=== PATIENT | male | born 1960 | race Caucasian/White ===

== ENCOUNTER 2017-01-30 12:39 | Emergency (ER) | payer BC, OTHER ==
[2017-01-30 12:46] VITALS: BP 125/85; PULSE 62; TEMP 97.6; BMI 25.0
[2017-01-30] MEDS ORDERED: IBUPROFEN 600 MG TABLET (FP) PO ONE (12:49)
--- NOTE | 2017-01-30 13:03 | PDOC ---
History of Present Illness - General Chief Complaint: Injury Stated Complaint: LEFT 1ST FINGER INJURY Time Seen by Provider: 01/30/17 12:48 - History of Present Illness Initial Comments: 01/30/17 13:03 Chief complaint: Injury left thumb History of present illness: Patient states that he was playing basketball around 11:00 this morning, the basketball struck the tip of his thumb, causing hyperextension, and he sustained a laceration to the flexor surface. He denies distal numbness tingling or pain in the fingertip. He denies inability to move the finger or flexion deficit Review of systems: As noted above, no distal numbness tingling or pain in the fingertip. No limited motion and bending. No other injuries and no fall Past medical history: Seizure disorder on Keppra, no recent seizures Family/social history reviewed and noncontributory Physical exam: Alert oriented 3 well-developed well-nourished no acute distress cheerful and cooperative Afebrile, vital signs normal Right thumb: 2 cm laceration volar aspect of the thumb along the crease of the IP joint. Fingertip sensation is intact on both medial and lateral aspect of the thumb. Capillary refill is intact. Flexion of the joint is full against resistance. Impression: Finger laceration, rule out fracture, rule out partial tendon injury Plan: X-ray, visual inspection after anesthesia, and repair of laceration. 01/30/17 14:15 Past History - Past Medical History Allergies/Adverse Reactions: Allergies Allergy/AdvReac Type Severity Reaction Status Date / Time Penicillins Allergy Rash Verified 01/30/17 12:40 Home Medications: Ambulatory Orders NK [No Known Home Medication] 01/30/17 Seizures: Yes (PT HAS QUESTIONABLE SEIZURE) - Psycho/Social/Smoking Cessation Hx Anxiety: No Suicidal Ideation: No Smoking Status: No Smoking History: Never smoked Number of Cigarettes Smoked Daily: 0 Hx Alcohol Use: No Drug/Substance Use Hx: No Substance Use Type: Alcohol *Physical Exam - Vital Signs Last Vital Signs Temp Pulse Resp BP Pulse Ox 97.6 F 62 16 125/85 100 01/30/17 12:40 01/30/17 12:40 01/30/17 12:40 01/30/17 12:40 01/30/17 12:40 Medical Decision Making - Medical Decision Making X-ray reviewed: Negative 01/30/17 14:14 Note: Repair of laceration Betadine prep. Digital block 1% lidocaine plain with good anesthesia Well scrubbed and copiously irrigated with normal saline. Explored. Superficial. No deep punctures or deep structures exposed. Wound closed with 4-0 nylon interrupted skin sutures. Bacitracin. Gauze. Rest and elevation. Wound care discussed. Follow-up with sign of infection, otherwise sutures out in 7 days Patient fully ambulatory and in no pain or other distress upon discharge to follow-up as directed. 01/30/17 14:16 *DC/Admit/Observation/Transfer Diagnosis at time of Disposition: Finger laceration Qualifiers: Encounter type: initial encounter Qualified Code(s): S61.219A - Laceration without foreign body of unspecified finger without damage to nail, initial encounter - Discharge Dispostion Disposition: HOME Condition at time of disposition: Improved Admit: No - Referrals Referrals: Zenia Wiseman MD [Primary Care Provider] - Emmanuel Valencia MD [Staff Physician] - - Patient Instructions Printed Discharge Instructions: DI for Laceration Repair Additional Instructions: Keep clean and dry. Elevate and rest for 24 hours. Recheck immediately if sign of infection. Otherwise suture removal in 7 days. - Post Discharge Activity Work/School Note: Back to Work
[2017-01-30] MEDS ORDERED: IBUPROFEN 400 MG TABLET (FP) PO ONE (13:05)
== END 2017-01-30 14:20 | disposition home or self-care (01) ==
LOC: FER 12:39
PROC: 0HQFXZZ Repair Right Hand Skin, External Approach (ICD-10-PCS; principal; 2017-01-30)
DX: S61.011A Laceration without foreign body of right thumb without damage to nail, initial encounter (principal); W21.05XA Struck by basketball, initial encounter; Y93.67 Activity, basketball; Y92.310 Basketball court as the place of occurrence of the external cause; G40.909 Epilepsy, unspecified, not intractable, without status epilepticus
CPT/HCPCS: 73140-TC-LT; 99282-25

== ENCOUNTER 2017-02-06 12:14 | Emergency (ER) | payer BC, OTHER ==
--- NOTE | 2017-02-06 12:21 | PDOC ---
Suture Removal/Wound Check HPI - History of Present Illness Chief Complaint: Suture/Staple Removal(Here) Stated Complaint: SUTURE REMOVAL FROM LEFT THUMB Time Seen by Provider: 02/06/17 12:20 History Source: Yes: Patient Exam Limitations: Yes: No Limitations Treated at: [facility] ED Date of Last ED visit: 01/30/17 - Previous ED Treatment Type of procedure performed on last visit: Yes: Laceration Repair Tetanus Immunization: Yes: Up to Date Antibiotics Prescribed: No - Onset of Previous Treatment Date of Occurence: 01/30/17 Comment:: 56 yo M presents for wound check. He c/o swelling to the thumb, but it is improving over time. No fever, chills, drainage of pus. Past History - Past Medical History Allergies/Adverse Reactions: Allergies Penicillins Allergy (Verified 02/06/17 12:17) Rash Home Medications: Ambulatory Orders NK [No Known Home Medication] 01/30/17 - Social History Smoking History: No Smoking Status: Never smoked Number of Ciarettes Per Day: 0 Suture Removal/Wound Check PE - Physical Exam Laceration/Wound Check Symptoms: reports: Improved Comments: GENERAL: Awake, alert, and fully oriented, in no acute distress HEAD: No signs of trauma EXTREMITIES: L thumb with swelling, no erythema, no drainage. NEUROLOGICAL: Distal N/V intact. SKIN: Warm, Dry, normal turgor, no rashes. +Healing laceration to the L thumb, but not completely dry/healed. *Review of Systems - Review of Systems Able to Perform ROS?: Yes Comments:: GENERAL/CONSTITUTIONAL: No fever or chills. No weakness. MUSCULOSKELETAL: No joint or muscle swelling or pain. No neck or back pain. SKIN: No rash. Healing laceration. NEUROLOGIC: No headache, vertigo, loss of consciousness, or change in strength/ sensation. Medical Decision Making - Medical Decision Making 02/06/17 12:31 Wound examined- appears slightly too early to remove sutures- the wound is not completely dried and scabbed over, and the center portion opens a bit. Will defer removing sutures for 4 more days. Counseled patient to try to leave the wound uncovered when at home, when able, to allow it to remain dry. *DC/Admit/Observation/Transfer Diagnosis at time of Disposition: Encounter for wound re-check - Discharge Dispostion Disposition: HOME Condition at time of disposition: Good Admit: No - Referrals Referrals: Zenia Wiseman MD [Primary Care Provider] - - Patient Instructions Printed Discharge Instructions: DI for Laceration Repair Additional Instructions: RETURN TO THE ER IN 4 DAYS TO HAVE SUTURES REMOVED.
[2017-02-06 12:23] VITALS: BP 120/83; PULSE 80; TEMP 97.5; BMI 25.0
== END 2017-02-06 12:32 | disposition home or self-care (01) ==
LOC: FER 12:14
DX: Z48.01 Encounter for change or removal of surgical wound dressing (principal)
CPT/HCPCS: 99282-25

== ENCOUNTER 2018-11-02 23:55 | Emergency (ER) | payer BC, OTHER ==
--- NOTE | 2018-11-03 | PDOC ---
History of Present Illness - General Chief Complaint: Pain, Acute Stated Complaint: HIT IN THE NOSE WHILE PLAYING BASKETBALL Time Seen by Provider: 11/02/18 23:59 Past History - Past Medical History Allergies/Adverse Reactions: Allergies Allergy/AdvReac Type Severity Reaction Status Date / Time Penicillins Allergy Rash Verified 02/06/17 12:17 Home Medications: Ambulatory Orders NK [No Known Home Medication] 01/30/17 Seizures: Yes (PT HAS QUESTIONABLE SEIZURE) - Immunization History Immunization Up to Date: Yes - Suicide/Smoking/Psychosocial Hx Smoking Status: No Smoking History: Never smoked Number of Cigarettes Smoked Daily: 0 Hx Alcohol Use: No Drug/Substance Use Hx: No Substance Use Type: Alcohol *DC/Admit/Observation/Transfer - Discharge Dispostion Condition at time of disposition: Stable - Referrals - Patient Instructions - Post Discharge Activity
[2018-11-03] MEDS ORDERED: IBUPROFEN 600 MG TABLET (FP) PO ONE ×2 (00:02→00:30)
--- NOTE | 2018-11-03 00:09 | PDOC ---
History of Present Illness - General Chief Complaint: Pain, Acute Stated Complaint: HIT IN THE NOSE WHILE PLAYING BASKETBALL Time Seen by Provider: 11/02/18 23:59 History Source: Patient Exam Limitations: No Limitations - History of Present Illness Initial Comments: 11/03/18 00:04 This is a 58-year-old male who comes in complaining of pain in his nose. Patient was playing a game of basketball when he was elbowed in the nose. Patient said he heard a crack in his nose immediately bled. Patient did not pass out denies any other injuries. Patient said he is otherwise healthy. Allergies: None Past Medical History: none Social history: Lives with family. No smoking. No alcohol. No illicit drugs. Surgical history: None General: No fevers or chills, no weakness, no weight loss HEENT: No change in vision. No sore throat,. No ear pain,+ nose pain CardioVascular: no chest discomfort. No shortness of breath Respiratory:No cough, or wheezing. Gastrointestinal: no nausea, vomiting, diarrhea or constipation, No rectal bleeding Genitourinary: No dysuria, hematuria, or frequency Musculoskeletal: No joint or muscle pain or swelling Neurologic: No headache, vertigo, dizziness or loss of consciousness Psychiatric: nor depression Skin: No rashes or easy bruising Endocrine: no increased thirst or abnormal weight change Allergic: no skin or latex allergy All other systems reviewed and normal GENERAL: The patient is awake, alert, and fully oriented, in no acute distress. HEAD: Nose is swollen with deformity and tenderness over palpation of the bridge of the nose there is no nasal septal hematoma there is no active bleeding at this time. EYES: Pupils equal, round and reactive to light, extraocular movements intact, sclera anicteric, conjunctiva clear. EXTREMITIES:atraumatic, Normal range of motion, no edema. NEUROLOGICAL: Normal speech, normal gait. PSYCH: Normal mood, normal affect. SKIN: Warm, Dry, normal turgor, no rashes or lesions noted. X-ray nasal bone shows comminuted nasal bone fracture Assessment and plan: This is a 8-year-old male who was hit in the nose during. Patient's x-ray is positive for fracture of the nasal bones. Patient given Motrin for pain and started on azithromycin to prevent sinusitis. Patient discharged home Past History - Past Medical History Allergies/Adverse Reactions: Allergies Allergy/AdvReac Type Severity Reaction Status Date / Time Penicillins Allergy Rash Verified 02/06/17 12:17 Home Medications: Ambulatory Orders NK [No Known Home Medication] 01/30/17 Seizures: Yes (PT HAS QUESTIONABLE SEIZURE) - Immunization History Immunization Up to Date: Yes - Suicide/Smoking/Psychosocial Hx Smoking Status: No Smoking History: Never smoked Number of Cigarettes Smoked Daily: 0 Hx Alcohol Use: No Drug/Substance Use Hx: No Substance Use Type: Alcohol ED Treatment Course - RADIOLOGY Radiology Studies Ordered: Category Date Time Status NASAL BONES [RAD] Stat Radiology 11/02/18 23:59 Ordered *DC/Admit/Observation/Transfer Diagnosis at time of Disposition: Nasal bone fracture Qualifiers: Encounter type: initial encounter Fracture type: closed Qualified Code(s): S02.2XXA - Fracture of nasal bones, initial encounter for closed fracture - Discharge Dispostion Disposition: HOME Condition at time of disposition: Stable Decision to Admit order: No - Referrals - Patient Instructions Additional Instructions: Tylenol or Motrin as needed for pain. Take azithromycin 1 tablet a day for 4 days to prevent a sinus infection. Follow-up with your primary care doctor for referral to an ENT. Return to the emergency department immediately with ANY new, persistent or worsening symptoms. Continue any medications as previously prescribed by your physician. You should follow up with your primary doctor as soon as possible regarding today's emergency department visit. . Please make sure your doctor reviews the results of your emergency evaluation. Thank you for coming to the Emergency Department today for your care. It was a pleasure to see you today. Please note that your evaluation is INCOMPLETE until you follow-up with your doctor. - Post Discharge Activity
[2018-11-03] MEDS ORDERED: AZITHROMYCIN 250 MG TABLET PO ONE (00:34)
[2018-11-03 00:36] VITALS: BP 141/100; PULSE 71; TEMP 97.6; BMI 25.0
[2018-11-03] MEDS ORDERED: AZITHROMYCIN 250 MG TABLET ONE (00:50)
== END 2018-11-03 00:54 | disposition home or self-care (01) ==
LOC: FER 23:55
DX: S02.2XXA Fracture of nasal bones, initial encounter for closed fracture (principal); W50.0XXA Accidental hit or strike by another person, initial encounter; Y93.67 Activity, basketball; Y92.310 Basketball court as the place of occurrence of the external cause
CPT/HCPCS: 70160-TC-FY; 99281-25